=== PATIENT | female | born 1950 | race Caucasian/White ===

== ENCOUNTER 2017-11-19 09:02 | Inpatient (IN) ==
[2017-11-19] MEDS ORDERED: Diphenoxylate/Atropine 1 TAB TABLET PO PRN (11:30)
--- NOTE | 2017-11-19 11:38 | History & Physical Report ---
Date of Encounter: 11/19/17 Time of Encounter: 11:32 24 Hour HP Update - Instructions Instructions: If the History and Physical is less than 30 days old and was completed prior to A.M. admission and or procedure and has NOT been updated on calendar day of procedure please complete this update prior to performing procedure. - Update Patient reports changes in Medical Condition: No Changes in examination, assessment, or condition: No Changes in Medication: No - Attending Attestation Ms. Dougherty is a 66-year-old female that presents as a direct admission for antiarrhythmic initiation for PAF. Please use office visit with Dr. Polk as full H&P. Pt denies chest pain, dyspnea or palpitations, but has fluctuating EF thought to be secondary to her PAF, which is why antiarrhythmic therapy has been recommended. Will initiate Rythmol 150mg Q8hrs. 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 Will start Rythmol on a [id number] schedule. Obtain baseline EKG, CBC and BMP. Will obtain daily EKGs for QRS monitoring. Needs monitored for 5 doses of Rythmol. Irregular rhythm on exam. If does not convert to SR after 5 rythmol doses, will need DCCV. Denies any missed Xarelto doses in the past 30 days, no HERLINDA will be warranted. Prior CV testing: LHC 10/16/17: Normal coronary arteries, EF 50%. TTE 10/08/17: LVEF 40-45%, global hypokinesis, mild MR and TR, moderate phtn est RVSP 47mmHg. TTE 08/25/14: EF 55%, mild TR.
[2017-11-19 11:59] LABS: Basophils # 0.1 K/mcL (0.0-0.2); Basophils % 1.1 %; Eosinophils # 0.2 K/mcL (0.0-0.6); Eosinophils % 2.6 %; Hematocrit 38.7 % (35.3-44.9); Hemoglobin 12.8 g/dL (11.5-15.4); Immature Granulocytes % 0.2 % (0-4); Lymphocytes # 1.6 K/mcL (0.6-4.6); Lymphocytes % 19.5 %; Mean Corpuscular HGB Conc 33.1 g/dL (31.6-35.5); Mean Corpuscular Hemoglobin 29.6 pg (28.0-33.3); Mean Corpuscular Volume 89.4 fL (83.0-100.0); Mean Platelet Volume 11.5 fL (9.4-12.4); Monocytes # 0.7 K/mcL (0.0-1.3); Monocytes % 7.7 %; Neutrophils # 5.8 K/mcL (1.6-8.9); Platelet Count 213 K/mcL (140-400); Red Blood Count 4.33 M/mcL (3.82-4.97); Red Cell Distribution Width 12.4 % (11.5-14.5); Segmented Neutrophils % 68.9 %
[2017-11-19 12:08] LABS: BUN/Creatinine Ratio 18 (6-26); Blood Urea Nitrogen 15 mg/dL (8-23); Calcium 9.1 mg/dL (8.6-10.3); Carbon Dioxide 23 mEq/L (23-29); Chloride 109 mEq/L (98-107); Glucose 129 mg/dL (70-105); Osmolality,Calculated 293 (280-300); Potassium 4.2 mEq/L (3.5-5.1); Sodium 140 mEq/L (136-145); eGFR For African Americans > 60 (> 60); eGFR For Non-African Americans > 60 (> 60)
--- NOTE | 2017-11-19 13:50 | Electrocardiograph Report ---
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
[2017-11-19] MEDS: *HR* Rivaroxaban 10 MG TABLET PO SCH ×2 (17:44→20:13)
[2017-11-20] MEDS: Metoprolol 100 MG TABLET PO SCH ×2 (00:04→12:20)
--- NOTE | 2017-11-20 10:01 | Cardiology Progress Note ---
Date of Encounter: 11/20/17 Time of Encounter: 09:58 Assessment and Plan (1) PAF (paroxysmal atrial fibrillation) Current Visit: Yes Status: Acute Presented for Rythmol initiation, 150mg Q8hrs. S/P 3 doses, converted to SR at 0715 this AM. Baseline EKG 11/19/17 A-Fib, rate 98, QRS 86ms. EKG 11/20/17 s/p 3 doses, A-Fib, rate 96, QRS 97ms. Needs monitored for 5 doses of Rythmol. Denies any missed Xarelto doses in the past 30 days. If pt remains in SR, plan for d/c tomorrow AM. Labs and vitals stable. Prior CV testing: LHC 10/16/17: Normal coronary arteries, EF 50%. TTE 10/08/17: LVEF 40-45%, global hypokinesis, mild MR and TR, moderate phtn est RVSP 47mmHg. TTE 08/25/14: EF 55%, mild TR. Discussion w patient/family: The assessment and plan as outlined above was discussed with the patient and/or family members who expressed understanding and agreement. All questions were answered. Thank you for involving us in the care of your patient. Please call with any questions. I will discuss all the above with Dr. Polk and make changes as necessary. Subjective Principal diagnosis: PAF Interval history: Pt converted to SR at 0715 this AM. S/P 3 doses of Rythmol. Denies cardiac complaints. Labs and vitals stable. EKG reviewed, QRS stable--yesterday QRS was 86ms, today 97ms. Objective Vital Signs, Last 4 Hours Temp Pulse Resp BP Pulse Ox 11/20/17 08:21 96 11/20/17 06:57 97.9 F 81 12 108/75 96 Vital Signs Temp Pulse Resp BP Pulse Ox 11/20/17 08:21 96 11/20/17 06:57 97.9 F 81 12 108/75 96 11/20/17 04:07 98 F 92 15 121/69 97 11/20/17 00:00 97.9 F 91 15 125/53 11/19/17 19:00 98.5 F 85 15 139/77 98 11/19/17 15:05 97.7 F 65 16 126/70 11/19/17 12:50 97 01/16/18 11:53 97.8 F 101 16 142/74 97 Intake and Output 11/19/17 11/20/17 11/20/17 23:59 07:59 15:59 Intake Total 340 / 340 800 / 800 0 / 0 Output Total 200 / 200 Balance 340 / 340 600 / 600 0 / 0 Intake: Oral 340 / 340 800 / 800 0 / 0 Output: Urine 200 / 200 Other: Meal Dinner Breakfast Percent of Meal Consumed 100% 0% Stool Size Moderate # Voids 1 3 Weight 70 kg Patient Weight 11/20/17 23:59 Weight 70 kg General: Conversant, No Apparent Distress HEENT: Atraumatic, Normocephaly, Mucus Membranes Moist Neck: No JVD, Normal carotid pulses Cardiac: Reg Rate and Rhythm, Normal S1 and S2, No Murmur Lungs: Normal Breath Sounds, No Wheeze, Rales, Rhonchi Neuro: Alert and responsive, No focal deficits noted Abdomen: Soft, Non-Tender Skin: No rashes noted on visualized skin Musculoskeletal: No Chest Wall Tenderness Extremities: No Clubbing, No Cyanosis, No Edema, Normal Pulses Results 11/19/17 11:43 11/19/17 11:43 Lab Results 11/19/17 11/19/17 11:43 11:43 WBC 8.4 Hgb 12.8 Hct 38.7 Plt Count 213 Sodium 140 Potassium 4.2 Chloride 109 H Carbon Dioxide 23 BUN 15 Creatinine 0.83 Glucose 129 H Calcium 9.1 Short CBC 11/19/17 Range/Units 11:43 WBC 8.4 (4.3-11.1) K/mcL Hgb 12.8 (11.5-15.4) g/dL Hct 38.7 (35.3-44.9) % Plt Count 213 (140-400) K/mcL Neutrophils # 5.8 (1.6-8.9) K/mcL BMP 11/19/17 Range/Units 11:43 Sodium 140 (136-145) mEq/L Potassium 4.2 (3.5-5.1) mEq/L Chloride 109 H (98-107) mEq/L Carbon Dioxide 23 (23-29) mEq/L BUN 15 (8-23) mg/dL Creatinine 0.83 (0.60-1.20) mg/dL Glucose 129 H (70-105) mg/dL Calcium 9.1 (8.6-10.3) mg/dL Active Medications Diphenoxylate HCl/Atropine (Lomotil 2.5 Mg/0.025 Mg) 1 tab PO BID PRN PRN Reason: Diarrhea Stop: 05/21/18 11:31 Losartan Potassium (Cozaar) 50 mg PO DAILY [facility] Stop: 05/22/18 09:01 Metoprolol Tartrate (Lopressor) 100 mg PO BID [facility] Stop: 05/21/18 21:01 Last Admin: 11/20/17 00:04 Dose: 100 mg Propafenone HCl (Rhythmol) 150 mg PO Q8H [facility] Stop: 05/21/18 12:01 Last Admin: 11/20/17 04:14 Dose: 150 mg Rivaroxaban (Xarelto) 20 mg PO QPM [facility] Stop: 05/21/18 17:01 Last Admin: 11/19/17 20:13 Dose: Not Given - Imaging and Cardiology Echo: report reviewed Cardiac cath: report reviewed - EKG Interpretation EKG results cardiology: personally reviewed, other (12 hr tele AVG HR 88, no significant pauses, PAF, now SR.) - VTE Reasons for not Prescribing Prophylaxis: Not indicated-Anticoagulated or INR therapeutic Consult Discharge Plan - Plan Referrals: Nury Snowden MD [Primary Care Provider] -
--- NOTE | 2017-11-20 17:08 | Electrocardiograph Report ---
[place] [id number] Test Date: 2017-11-20 Pat Name: Radha Dougherty Department: 111 Room: 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
[2017-11-20] MEDS: *HR* Rivaroxaban 10 MG TABLET PO SCH (17:32)
[2017-11-21] MEDS: Metoprolol 100 MG TABLET PO SCH ×2 (00:13→10:17)
[2017-11-21 07:47] VITALS: BP 138/72
--- NOTE | 2017-11-21 08:55 | Discharge Summary ---
Date of Encounter: 11/21/17 Time of Encounter: 08:51 - Discharge Diagnosis (1) PAF (paroxysmal atrial fibrillation) Priority: Primary Status: Acute - Discharge Medications Prescriptions: Propafenone [Rhythmol] 150 mg PO Q8H #90 tablet Home Medications: Losartan Potassium [Cozaar] 50 mg PO DAILY 08/26/17 [History] Metoprolol [Lopressor] 100 mg PO BID 08/26/17 [History] Rivaroxaban [Xarelto] 20 mg PO DAILY 08/26/17 [History] Diphenoxylate/Atropine [Lomotil 2.5 mg/0.025 mg] 1 each PO BID PRN 10/16/17 [ History] Propafenone [Rhythmol] 150 mg PO Q8H #90 tablet 11/21/17 [Rx] Allergies/Adverse Reactions: 3 Allergy/AdvReac Type Severity Reaction Status Date / Time diltiazem Allergy Hives Verified 08/26/17 09:17 Procedures/tests Complete & Pending: Procedures Performed prior 72 hours Category Date Time Status EKG [ECG 12 lead ECG] [ECG] AM 0600 Y 11/20/17 06:00 Completed EKG [ECG 12 lead ECG] [ECG] AM 0600 Y 11/21/17 06:00 Completed EKG [ECG 12 lead ECG] [ECG] AM 0600 Y 11/22/17 06:00 Ordered EKG [ECG 12 lead ECG] [ECG] Stat Y 11/19/17 11:29 Completed Date of admission: 11/19/17 09:48 Primary care physician: Nury Snowden Discharging clinician: Aj Palomo Anticipated date of discharge: 11/21/17 - Patient Status Disposition: Home, Self-Care Condition: Good Functional capacity at discharge: independent ambulation Overall status at discharge: patient is back to baseline - Discharge Instructions Follow Up With: Nury Snowden MD [Primary Care Provider] - - Diet and Activity Activity: increase activity as tolerated Diet: advance to your usual diet - Hospital Course Hospital course: Ms. Dougherty is a 66 year old female with PAF that presented for Rythmol initiation, 150mg Q8hrs. S/P 6 doses, converted to SR at 0715 yesterday AM and has remained in SR since that time. Baseline EKG 11/19/17 A-Fib, rate 98, QRS 86ms. EKG 11/20/17 s/p 3 doses, A-Fib, rate 96, QRS 97ms. EKG 11/21/17 SR, rate 67 , QRS 100ms. Anticoagulated on Xarelto. Labs and vitals stable. D/C home in stable condition. Prior CV testing: LHC 10/16/17: Normal coronary arteries, EF 50%. TTE 10/08/17: LVEF 40-45%, global hypokinesis, mild MR and TR, moderate phtn est RVSP 47mmHg. TTE 08/25/14: EF 55%, mild TR. - Time Spent with Patient Total time spent providing and/or coordinating discharge services: Less than 30 minutes Physical Examination Vital Signs, Last 4 Hours Temp Pulse Resp BP Pulse Ox 11/21/17 07:45 97.8 F 88 14 138/72 97 11/21/17 05:38 98.8 F 67 16 134/65 96 Vital Signs Temp Pulse Resp BP Pulse Ox 11/21/17 07:45 97.8 F 88 14 138/72 97 11/21/17 05:38 98.8 F 67 16 134/65 96 11/20/17 21:14 98.3 F 67 16 96 11/20/17 19:38 131/66 11/20/17 15:30 97.7 F 72 14 124/54 98 11/20/17 15:08 98.3 F 73 14 116/60 97 11/20/17 11:03 97.6 F 79 14 121/61 97 Intake and Output 11/20/17 11/21/17 11/21/17 23:59 07:59 15:59 Intake Total 240 / 240 Output Total 100 / 100 Balance 140 / 140 Intake: Oral 240 / 240 Output: Urine 100 / 100 Other: Meal Dinner Percent of Meal Consumed 100% Weight 71 kg Patient Weight 11/21/17 23:59 Weight 71 kg General: Conversant, No Apparent Distress HEENT: Atraumatic, Normocephaly, Mucus Membranes Moist Neck: No JVD, Normal carotid pulses Cardiac: Reg Rate and Rhythm, Normal S1 and S2, No Murmur Lungs: Normal Breath Sounds, No Wheeze, Rales, Rhonchi Neuro: Alert and responsive, No focal deficits noted Abdomen: Soft, Non-Tender Skin: No rashes noted on visualized skin Musculoskeletal: No Chest Wall Tenderness Extremities: No Clubbing, No Cyanosis, No Edema, Normal Pulses - VTE Reasons for not Prescribing Prophylaxis: Not indicated-Anticoagulated or INR therapeutic
--- NOTE | 2017-11-23 07:08 | Electrocardiograph Report ---
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
== END 2017-11-21 13:18 | disposition home or self-care (01) | DRG 310 ==
LOC: 2NENU 09:48
PROVIDERS: ADMIT Internal Medicine; ATTEND Internal Medicine